=== PATIENT | female | born 1995 | race Caucasian/White ===

== ENCOUNTER 2023-07-19 03:45 | Inpatient (IN) | payer OTHER ==
[2023-07-19] MEDS ORDERED: Sodium Chloride 0.9% 10 ML Syringe FLUSH PRN (04:10)
[2023-07-19] MEDS ORDERED: Sodium Chloride 0.9% 2.5 ML Syringe FLUSH PRN (04:10)
[2023-07-19] MEDS ORDERED: Lidocaine 1% 50 ML MDV INJECT PRN (04:10)
[2023-07-19] MEDS ORDERED: Carboprost Tromethamine 250 MCG/1 mL Vial IM PRN (04:10)
[2023-07-19] MEDS ORDERED: Water For Irrigation,Sterile 1,000 ML Container IRR PRN (04:10)
[2023-07-19] MEDS ORDERED: Ondansetron 4 MG/2 ML SDV IVPUSH PRN ×4 (04:10→20:50)
[2023-07-19] MEDS ORDERED: Nalbuphine 10 MG/0.5 ML Syringe IVPUSH PRN (04:10)
[2023-07-19] MEDS ORDERED: Methylergonovine 0.2 MG/1 ML Amp IM PRN ×2 (04:10→20:39)
[2023-07-19] MEDS ORDERED: Misoprostol 200 MCG Tab PO PRN (04:10)
[2023-07-19] MEDS ORDERED: Sodium Chloride 0.9% 20 ML SDV IV PRN (04:10)
[2023-07-19] MEDS ORDERED: Tranexamic Acid IN NACL,ISO-OS 1,000 MG in Premix Bag 1 BAG IV PRN ×2 (04:10)
[2023-07-19] MEDS ORDERED: Oxytocin/0.9 % Sodium Chloride 30 UNIT/500 ML BAG IV SCH ×3 (04:15→20:45)
[2023-07-19 04:52] LABS: HEMATOCRIT 33.5 % (37.0-47.0); HEMOGLOBIN 11.6 g/dL (12.0-16.0); MEAN CORPUSCULAR HEMOGLOBIN 28.9 pg (28.0-32.0); MEAN CORPUSCULAR HGB CONC 34.6 g/dL (32.0-36.0); MEAN CORPUSCULAR VOLUME 83.5 fL (83.0-99.0); PLATELET COUNT,PLT 178 K/uL (150-400); RED BLOOD CELL COUNT 4.01 M/uL (4.10-5.30); WHITE BLOOD CELL COUNT,WBC 6.29 K/uL (3.9-11.3)
[2023-07-19] MEDS ORDERED: Terbutaline 1 MG/ML SDV SUBCUT PRN (06:44)
[2023-07-19] MEDS: Misoprostol 25 MCG (1/4 of 100 MCG) Tab VAG PRN ×2 (07:05→11:06)
[2023-07-19] MEDS: Lactated Ringers 1,000 ML IV SCH ×3 (08:56→15:51)
[2023-07-19] MEDS ORDERED: Bupivacaine 0.5% 10 ML SDV ONE (09:24)
[2023-07-19] MEDS ORDERED: Phenylephrine HCl 0.5 MG/5 ML AMP ONE (09:24)
[2023-07-19] MEDS ORDERED: Ropivacaine/PF 400 MG/200 ML PCA ONE (09:25)
[2023-07-19] MEDS ORDERED: Misoprostol 25 MCG (1/4 of 100 MCG) Tab VAG PRN (10:45)
[2023-07-19] MEDS ORDERED: Acetaminophen 325 MG Tab PO ONE (16:24)
[2023-07-19] MEDS ORDERED: Acetaminophen 500 MG Tab ONE (16:37)
[2023-07-19] MEDS ORDERED: Acetaminophen 500 MG Tab PO ONE (16:45)
[2023-07-19] MEDS ORDERED: Ketorolac 30 MG/ML SDV IVPUSH SCH (19:00)
[2023-07-19] MEDS ORDERED: Oxytocin 10 Units/1 ML SDV ONE (19:03)
[2023-07-19] MEDS ORDERED: Ketorolac 30 MG/ML SDV ONE (19:03)
[2023-07-19] MEDS ORDERED: Morphine PF 10 MG/10 ML SDV ONE (19:03)
[2023-07-19] MEDS ORDERED: Ondansetron 4 MG/2 ML SDV ONE (19:03)
[2023-07-19] MEDS ORDERED: Bupivacaine 0.25% 30 ML SDV ONE (19:03)
[2023-07-19] MEDS ORDERED: fentaNYL 100 MCG/2 ML SDV ONE (19:03)
[2023-07-19] MEDS ORDERED: ceFAZolin 1 GM Vial ONE (19:03)
[2023-07-19] MEDS ORDERED: Ropivacaine 0.5% 5 MG/ML 30 ML SDV ONE (19:03)
[2023-07-19] MEDS ORDERED: ePHEDrine 50 MG/ML SDV ONE (19:03)
[2023-07-19] MEDS ORDERED: EPINEPHrine 1 MG/1 ML Amp ONE (19:08)
[2023-07-19] MEDS ORDERED: Lidocaine 2% 5 ML SDV ONE (19:47)
[2023-07-19] MEDS ORDERED: Methylergonovine 0.2 MG/1 ML Amp ONE (19:54)
[2023-07-19] MEDS ORDERED: Lanolin 100% Cream 7 GM Tube TOP PRN (20:39)
[2023-07-19] MEDS ORDERED: oxyCODONE 5 MG Tab PO PRN (20:39)
[2023-07-19] MEDS ORDERED: Misoprostol 200 MCG Tab RECTAL PRN (20:39)
[2023-07-19] MEDS ORDERED: Oxytocin 10 Units/1 ML SDV IM PRN (20:39)
[2023-07-19] MEDS ORDERED: diphenhydrAMINE 50 MG/ML SDV IVPUSH PRN ×2 (20:39→20:50)
[2023-07-19] MEDS ORDERED: Acetaminophen 325 MG Tab PO PRN (20:39)
[2023-07-19] MEDS ORDERED: Bisacodyl 10 MG Supp RECTAL PRN (20:39)
[2023-07-19] MEDS ORDERED: Lactated Ringers 1,000 ML IV SCH (20:45)
[2023-07-19] MEDS ORDERED: Morphine 2 MG/ML SYRINGE IVPUSH PRN (20:50)
[2023-07-19] MEDS ORDERED: ePHEDrine 50 MG/ML SDV IVPUSH PRN (20:50)
[2023-07-19] MEDS ORDERED: droPERidol 5 MG/2 ML SDV IVPUSH PRN (20:50)
[2023-07-19] MEDS ORDERED: fentaNYL 50 MCG/ML SDV IVPUSH PRN (20:50)
[2023-07-19] MEDS ORDERED: Metoclopramide 10 MG/2 ML SDV IVPUSH PRN (20:50)
[2023-07-19] MEDS ORDERED: fentaNYL 100 MCG/2 ML SDV IVPUSH PRN (20:50)
[2023-07-19] MEDS ORDERED: Albuterol 0.083% 2.5 MG/3 ML Neb Soln NEB PRN (20:50)
[2023-07-19] MEDS ORDERED: HYDROmorphone 1 MG/ML Syringe IVPUSH PRN (20:50)
[2023-07-19] MEDS ORDERED: Acetaminophen/oxyCODONE 325-5 MG Tab PO PRN (20:50)
[2023-07-19] MEDS ORDERED: Naloxone 0.4 MG/ML SDV IVPUSH PRN (20:50)
[2023-07-19] MEDS: Docusate Sodium 100 MG Cap PO SCH (20:59)
[2023-07-19 21:23] LABS: PH,UMBILICAL ARTERIAL 7.065 (7.18-7.38); PH,UMBILICAL VENOUS 7.095 (7.25-7.45)
[2023-07-20] MEDS: Acetaminophen 1,000 MG in Premix Bag 1 BAG IV SCH ×4 (00:58→19:15)
[2023-07-20] MEDS: Ketorolac 30 MG/ML SDV IVPUSH SCH ×4 (02:06→20:11)
[2023-07-20 05:16] LABS: HEMATOCRIT 28.8 % (37.0-47.0); HEMOGLOBIN 9.8 g/dL (12.0-16.0)
[2023-07-20] MEDS: Docusate Sodium 100 MG Cap PO SCH ×2 (08:10→20:12)
[2023-07-21] MEDS: Ibuprofen 800 MG Tab PO PRN ×2 (09:02→21:20)
[2023-07-21] MEDS: Docusate Sodium 100 MG Cap PO SCH ×2 (09:02→21:07)
[2023-07-22] MEDS: Ibuprofen 800 MG Tab PO PRN (06:22)
[2023-07-22] MEDS: Docusate Sodium 100 MG Cap PO SCH (08:30)
== END 2023-07-22 12:05 | disposition home or self-care (01) | DRG 788 ==
LOC: MW.OBCHECK 03:45 → MW.OB 03:46 → MW.OBCHECK 04:00 → OBSVTOIN 20:39 → MW.OB 23:30
PROVIDERS: ADMIT Obstetrics & Gynecology; ATTEND Obstetrics & Gynecology
PROC: 10D00Z1 Extraction of Products of Conception, Low, Open Approach (ICD-10-PCS; principal; 2023-07-19 19:45)
DX: O42.02 Full-term premature rupture of membranes, onset of labor within 24 hours of rupture (principal); O48.0 Post-term pregnancy; O62.1 Secondary uterine inertia; O76 Abnormality in fetal heart rate and rhythm complicating labor and delivery; Z37.0 Single live birth; Z3A.40 40 weeks gestation of pregnancy
CPT/HCPCS: 36415; 51702; 82803; 84112; 85014; 85018; 85027; 86592; 86850; 86900; 86901; A9270-GY; J0131; J0171; J0665; J0690; J1885; J2210; J2274; J2371; J2405; J2590; J2795; J3010; J3490; J7120

== ENCOUNTER 2024-04-24 01:53 | Emergency (ER) | payer OTHER ==
[2024-04-24] MEDS: Ketorolac 30 MG/ML SDV IVPUSH ONE (02:17)
[2024-04-24] MEDS: Sodium Chloride 0.9% 2.5 ML Syringe FLUSH PRN (02:17)
[2024-04-24] MEDS: Sodium Chloride 0.9% 10 ML Syringe FLUSH PRN (02:17)
[2024-04-24 02:26] LABS: BASOPHILS ABSOLUTE AUTO 0.02 K/uL (0.00-0.20); BASOPHILS PERCENT AUTO 0.4 % (0.0-1.0); EOSINOPHILS ABSOLUTE AUTO 0.23 K/uL (0.00-0.45); EOSINOPHILS PERCENT AUTO 4.4 % (0.0-6.0); HEMATOCRIT 40.8 % (37.0-47.0); HEMOGLOBIN 13.7 g/dL (12.0-16.0); IMMATURE GRAN ABSOLUTE AUTO 0.01 K/uL (0.00-0.05); IMMATURE GRAN PERCENT AUTO 0.2 % (0.0-0.4); LYMPHOCYTES ABSOLUTE AUTO 2.23 K/uL (1.00-4.80); LYMPHOCYTES PERCENT AUTO 42.4 % (24.0-44.0); MEAN CORPUSCULAR HEMOGLOBIN 29.5 pg (28.0-32.0); MEAN CORPUSCULAR HGB CONC 33.6 g/dL (32.0-36.0); MEAN CORPUSCULAR VOLUME 87.7 fL (83.0-99.0); MEAN PLATELET VOLUME 9.7 fL (9.4-12.3); MONOCYTES ABSOLUTE AUTO 0.36 K/uL (0.00-0.80); MONOCYTES PERCENT AUTO 6.8 % (0.0-8.0); NEUTROPHILS ABSOLUTE AUTO 2.41 K/uL (1.80-7.70); NEUTROPHILS PERCENT AUTO 45.8 % (41.0-71.0); PLATELET COUNT,PLT 190 K/uL (150-400); RED BLOOD CELL COUNT 4.65 M/uL (4.10-5.30); WHITE BLOOD CELL COUNT,WBC 5.26 K/uL (3.9-11.3)
[2024-04-24 02:49] LABS: ALBUMIN 4.2 g/dL (3.4-5.0); BILIRUBIN TOTAL 0.6 mg/dL (0.2-1.0); CALCIUM 9.5 mg/dL (8.5-10.1); CARBON DIOXIDE,CO2 31.4 mmol/L (21.0-32.0); CREATININE 0.9 mg/dL (0.6-1.0); EST CRCL DRUG DOSING (CG) 89.69 mL/min; POTASSIUM,K 3.8 mmol/L (3.5-5.1); PROTEIN TOTAL,TP 8.4 g/dL (6.4-8.2)
[2024-04-24] MEDS: Ondansetron 4 MG/2 ML SDV IVPUSH ONE (04:12)
[2024-04-24] MEDS: Morphine 4 MG/ML Syringe IVPUSH ONE (04:12)
[2024-04-24] MEDS: Iopamidol 755 Mg/ML 100 ML Bottle IVPUSH ONE (07:27)
== END 2024-04-24 08:23 | disposition home or self-care (01) ==
LOC: MW.ED 01:53
DX: R10.31 Right lower quadrant pain (principal)
CPT/HCPCS: 36415; 74177; 80053; 81025; 83690; 85025; 96374; 96375; 99284; J1885; J2270; J2405; J3490; Q9967